=== PATIENT | female | born 1995 ===

== ENCOUNTER → 2020-10-04 | Emergency (ER) | payer OTHER ==
[~2020-10-04] VITALS: Ht 160 cm; Wt 90.0 kg
[~2020-10-04] MED LIST: HYDR-3686 PO
[2020-10-04 16:29] VITALS: BP 148/85
== END | disposition home or self-care (01) ==
LOC: ER 16:20
DX: F41.0 Panic disorder [episodic paroxysmal anxiety] (principal); R07.89 Other chest pain; F17.200 Nicotine dependence, unspecified, uncomplicated; Z79.899 Other long term (current) drug therapy
CPT/HCPCS: 93005; 99283